=== PATIENT | male | born 1975 | race American Indian/Alaskan Native ===

== ENCOUNTER 2017-09-21 21:34 | Emergency (ER) | payer SELFPAY ==
[2017-09-21] MEDS ORDERED: DUONEB *Not for PRN Use IH ONE (22:34)
--- NOTE | 2017-09-22 01:21 | XRay Report ---
FINAL REPORT EXAM: XR CXR CLINICAL INDICATIONS: UPPER RESP DISTRESS FINDINGS: Frontal and lateral views of the chest were acquired and demonstrate that the heart is normal in size. The lungs appear clear. The pleura and mediastinum are within normal limits. IMPRESSION: NO ACTIVE DISEASE IN THE CHEST
--- NOTE | 2017-09-22 01:52 | Emergency Department Report ---
Upper Respiratory HPI - HPI Chief Complaint: Upper Respiratory Infection Stated Complaint: JERALD; ALLERGIES Time Seen by Provider: 09/22/17 01:00 URI Symptoms: Rhinorrhea: Yes, Sore Throat: No, Ear Pain: No, Cough: Yes, Shortness of Breath: No, Sick Contacts: No, Unable to Take Fluids: No, Urine Output Abnormal: No, Listless Behavior: No Other History: This is a 42-year-old male nontoxic, well nourished in appearance , no acute signs of distress presents to the ED with c/o of nonproductive cough and rhinorrhea with nasal congestion. Patient also stated has had slight wheezing which causes him to have difficulty breathing. Patient states she has history of allergies to pollen and stated this occurs yearly. Patient denies any fever, productive cough, numbness, tingling, headache, stiff neck, back pain , chest pain, shortness of breath, abdominal pain, numbness or tingling. Patient denies any recent travels, long car rides or recent hospital stays. Patient denies any calf pain or calf tenderness. Patient denies any allergies or PMH. - Home Meds and Allergies Home Medications: Previous Rx's Medication Instructions Recorded Last Taken Type ALBUTEROL Inhaler [ProAir HFA 2 puff IH QID PRN #1 inhalation 09/22/17 Unknown Rx Inhaler] Benzonatate [Tessalon Perle] 100 mg PO Q6H PRN #20 capsule 09/22/17 Unknown Rx Fluticasone [Flonase] 1 spray NS QDAY #1 bottle 09/22/17 Unknown Rx Loratadine [Claritin] 10 mg PO DAILY #30 tablet 09/22/17 Unknown Rx Prednisone [predniSONE 10 mg 10 mg PO .TAPER #1 tab.ds.pk 09/22/17 Unknown Rx (6-Day Pack, 21 Tabs)] Allergies/Adverse Reactions: Allergies Allergy/AdvReac Type Severity Reaction Status Date / Time No Known Allergies Allergy Verified 09/21/17 22:30 ED Review of Systems ROS: Stated complaint: JERALD; ALLERGIES Other details as noted in HPI Constitutional: denies: chills, fever Eyes: denies: eye pain, eye discharge, vision change ENT: denies: ear pain, throat pain Respiratory: cough, shortness of breath, wheezing Cardiovascular: denies: chest pain, palpitations Endocrine: no symptoms reported Gastrointestinal: denies: abdominal pain, nausea, diarrhea Genitourinary: denies: urgency, dysuria Musculoskeletal: denies: back pain, joint swelling, arthralgia Skin: denies: rash, lesions Neurological: denies: headache, weakness, paresthesias Psychiatric: denies: anxiety, depression Hematological/Lymphatic: denies: easy bleeding, easy bruising ED Past Medical Hx - Past Medical History Previous Medical History?: No - Surgical History Past Surgical History?: No - Social History Smoking Status: Never Smoker Substance Use Type: Alcohol - Medications Home Medications: Home Medications Medication Instructions Recorded Confirmed Last Taken Type ALBUTEROL Inhaler [ProAir HFA 2 puff IH QID PRN #1 inhalation 09/22/17 Unknown Rx Inhaler] Benzonatate [Tessalon Perle] 100 mg PO Q6H PRN #20 capsule 09/22/17 Unknown Rx Fluticasone [Flonase] 1 spray NS QDAY #1 bottle 09/22/17 Unknown Rx Loratadine [Claritin] 10 mg PO DAILY #30 tablet 09/22/17 Unknown Rx Prednisone [predniSONE 10 mg 10 mg PO .TAPER #1 tab.ds.pk 09/22/17 Unknown Rx (6-Day Pack, 21 Tabs)] ED Bronchiolitis Physical Exam - Exam General: Vital signs noted. No distress. Alert and acting appropriately. Neurologic: Alert and oriented, no deficits. Musculoskeletal: Unremarkable. ED Bronchiolitis Tests - Testing Testing: CXR: Normal/Negative Treatments - Treaments Treatment: Improved Albuterol ED Physical Exam - General Limitations: No Limitations General appearance: alert, in no apparent distress - Head Head exam: Present: atraumatic, normocephalic - Eye Eye exam: Present: normal appearance Pupils: Present: normal accommodation - ENT ENT exam: Present: normal exam, normal orophraynx, mucous membranes moist, TM's normal bilaterally, normal external ear exam - Neck Neck exam: Present: normal inspection - Respiratory Respiratory exam: Present: normal lung sounds bilaterally, wheezes (bilateral upper and lower lobes). Absent: respiratory distress, rales, rhonchi, stridor, chest wall tenderness, accessory muscle use, decreased breath sounds, prolonged expiratory - Cardiovascular Cardiovascular Exam: Present: regular rate, normal rhythm, irregular rhythm, normal heart sounds. Absent: bradycardia, tachycardia, systolic murmur, diastolic murmur, rubs, gallop - GI/Abdominal GI/Abdominal exam: Present: soft, normal bowel sounds. Absent: distended, tenderness, guarding, rebound, rigid, diminished bowel sounds - Rectal Rectal exam: Present: deferred - Extremities Exam Extremities exam: Present: normal inspection, full ROM, normal capillary refill - Back Exam Back exam: Present: normal inspection, full ROM - Neurological Exam Neurological exam: Present: alert, oriented X3, normal gait - Psychiatric Psychiatric exam: Present: normal affect, normal mood - Skin Skin exam: Present: warm, dry, intact, normal color. Absent: rash ED Course Vital Signs 09/21/17 22:30 Temperature 98.9 F Pulse Rate 77 Respiratory 16 Rate Blood Pressure 135/50 O2 Sat by Pulse 97 Oximetry - Consultations Consultation #1: 09/22/17 01:54 Patient is speaking in full sentences with no signs of distress noted. ED Medical Decision Making - Medical Decision Making This is a 42-year-old female that presents with bronchitis. Patient was examined by me and patient is stable. X-ray dictated by the radiologist within normal limits. PAtient received DuoNeb and Solu-Medrol in the ED which peaked his symptoms of wheezing has subsided. Patient also stated that his shortness of breath has also subsided. Wells criteria 0 point for DVT/PE. Patient is discharged with Claritin, prednisone, Tessalon Perles. Patient was referred to Follow-up with a primary care doctor in 3-5 days or if symptoms worsen and continue return to emergency room as soon as possible. At time of discharge, the patient does not seem toxic or ill in appearance. No acute signs of distress noted. Patient agrees to discharge treatment plan of care. No further questions noted by the patient. Critical care attestation.: If time is entered above; I have spent that time in minutes in the direct care of this critically ill patient, excluding procedure time. ED Disposition Clinical Impression: Bronchitis Disposition: DC-01 TO HOME OR SELFCARE Is pt being admited?: No Does the pt Need Aspirin: No Condition: Stable Instructions: Albuterol (By breathing), Prednisone (By mouth), Acute Bronchitis (ED) Additional Instructions: Follow-up with a primary care doctor in 3-5 days or if symptoms worsen and continue return to emergency room as soon as possible. Prescriptions: ALBUTEROL Inhaler [ProAir HFA Inhaler] 2 puff IH QID PRN #1 inhalation PRN Reason: Shortness Of Breath Benzonatate [Tessalon Perle] 100 mg PO Q6H PRN #20 capsule PRN Reason: Cough Fluticasone [Flonase] 1 spray NS QDAY #1 bottle Loratadine [Claritin] 10 mg PO DAILY #30 tablet Prednisone [predniSONE 10 mg (6-Day Pack, 21 Tabs)] 10 mg PO .TAPER #1 tab.ds.pk Referrals: MATT JC MD [Primary Care Provider] - 3-5 Days PRIMARY CARE, [Referring] - 3-5 Days [facility] [Outside] - 3-5 Days [facility] [Outside] - 3-5 Days Forms: Work/School Release Form(ED)
[2017-09-22 03:29] VITALS: BP 130/62
== END 2017-09-22 03:34 | disposition home or self-care (01) ==
LOC: ED 21:34
DX: J40 Bronchitis, not specified as acute or chronic (principal)
CPT/HCPCS: 71046; 96372; 99283; J2930

== ENCOUNTER 2020-05-20 18:45 | Emergency (ER) | payer SELFPAY ==
[2020-05-20 19:23] VITALS: BP 168/96
--- NOTE | 2020-05-20 19:28 | Event Note ---
ED Screening Note Date of service: 05/20/20 Time: 19:26 ED Screening Note: 45-year-old -[place] male presents to the emergency room for right knee injury and pain with swelling. This initial assessment/diagnostic orders/clinical plan/treatment(s) is/are subject to change based on patients health status, clinical progression and re- assessment by fellow clinical providers in the ED. Further treatment and workup at subsequent clinical providers discretion. Patient/guardian urged not to elope from the ED as their condition may be serious if not clinically assessed and managed. Initial orders include:
--- NOTE | 2020-05-20 20:05 | XRay Report ---
RIGHT KNEE 2 VIEWS INDICATION / CLINICAL INFORMATION: Knee injury pain and swelling COMPARISON: None available. FINDINGS: BONES / JOINT(S): No acute fracture or subluxation. No significant arthritis. SOFT TISSUES: No significant abnormality. ADDITIONAL FINDINGS: None. Signer Name: Josue Loo MD Signed: 05/20/2020 8:00 PM Workstation Name: [id number]
[2020-05-20] MEDS ORDERED: IBUPROFEN 600 MG TAB PO ONE (20:37)
[2020-05-20] MEDS ORDERED: ACETAMINOPHEN 500 MG TAB PO ONE (20:37)
--- NOTE | 2020-05-20 20:42 | Emergency Department Report ---
ED Lower Extremity HPI - General Chief Complaint: Extremity Injury, Lower Stated Complaint: RT KNEE INJURY/PAIN Source: patient Mode of arrival: Ambulatory Limitations: No Limitations - History of Present Illness Initial Comments: Patient is a 45-year-old -Spanish male with no past medical history presents to the ED with complaint of acute onset persistent right knee pain after twisting the right knee 24 hours ago. Patient states that the pain has been persistent and severe in the last 12 hours, and worse with ambulation or active range of motion of right leg. Patient denies fall, traumatic injury, headache, dizziness, syncope, numbness and tingling or weakness of lower extremities bilaterally, back pain, hip pain, chest pain or shortness of breath. MD Complaint: knee injury (right knee pain) -: Sudden, hour(s) (24) Injury: Knee: Right (pain) Type of Injury: eversion, hyperextension Place: home Severity: severe Severity scale (0 -10): 7 Improves With: nothing Worsens With: weight bearing, movement, palpation Context: other (Twisted right knee ) Associated Symptoms: snap/pop sensation, swelling, able to partially bear weight. denies: numbness, tingling, unable to bear weight, ambulatory - Related Data Previous Rx's Medication Instructions Recorded Last Taken Type Albuterol Mdi (or & Nicu Only) 2 puff IH QID PRN #1 inhalation 09/22/17 Unknown Rx [ProAir HFA Inhaler] Benzonatate [Tessalon Perle] 100 mg PO Q6H PRN #20 capsule 09/22/17 Unknown Rx Fluticasone [Flonase] 1 spray NS QDAY #1 bottle 09/22/17 Unknown Rx Loratadine (Nf) [Claritin] 10 mg PO DAILY #30 tablet 09/22/17 Unknown Rx Prednisone [predniSONE 10 mg 10 mg PO .TAPER #1 tab.ds.pk 09/22/17 Unknown Rx (6-Day Pack, 21 Tabs)] Cyclobenzaprine [Flexeril] 10 mg PO QHS PRN #10 tablet 05/20/20 Unknown Rx Ibuprofen [Motrin] 800 mg PO Q8HR PRN #30 tablet 05/20/20 Unknown Rx Allergies Allergy/AdvReac Type Severity Reaction Status Date / Time No Known Allergies Allergy Verified 09/21/17 22:30 ED Review of Systems ROS: Stated complaint: RT KNEE INJURY/PAIN Other details as noted in HPI Constitutional: denies: chills, fever Eyes: denies: eye pain, eye discharge, vision change ENT: denies: ear pain, throat pain Respiratory: denies: cough, shortness of breath, wheezing Cardiovascular: denies: chest pain, palpitations Endocrine: no symptoms reported Gastrointestinal: denies: abdominal pain, nausea, diarrhea Genitourinary: denies: urgency, dysuria Musculoskeletal: joint swelling (right knee mild swelling), arthralgia (right knee). denies: back pain Skin: denies: rash, lesions Neurological: denies: headache, weakness, paresthesias Psychiatric: denies: anxiety, depression Hematological/Lymphatic: denies: easy bleeding, easy bruising ED Past Medical Hx - Past Medical History Previous Medical History?: No - Social History Smoking Status: Never Smoker Substance Use Type: None - Medications Home Medications: Home Medications Medication Instructions Recorded Confirmed Last Taken Type Albuterol Mdi (or & Nicu Only) 2 puff IH QID PRN #1 inhalation 09/22/17 Unknown Rx [ProAir HFA Inhaler] Benzonatate [Tessalon Perle] 100 mg PO Q6H PRN #20 capsule 09/22/17 Unknown Rx Fluticasone [Flonase] 1 spray NS QDAY #1 bottle 09/22/17 Unknown Rx Loratadine (Nf) [Claritin] 10 mg PO DAILY #30 tablet 09/22/17 Unknown Rx Prednisone [predniSONE 10 mg 10 mg PO .TAPER #1 tab.ds.pk 09/22/17 Unknown Rx (6-Day Pack, 21 Tabs)] Cyclobenzaprine [Flexeril] 10 mg PO QHS PRN #10 tablet 05/20/20 Unknown Rx Ibuprofen [Motrin] 800 mg PO Q8HR PRN #30 tablet 05/20/20 Unknown Rx ED Physical Exam - General Limitations: No Limitations General appearance: alert, in no apparent distress - Head Head exam: Present: atraumatic, normocephalic, normal inspection - Eye Eye exam: Present: normal appearance, PERRL, EOMI Pupils: Present: normal accommodation - ENT ENT exam: Present: normal exam, normal orophraynx, mucous membranes moist, TM's normal bilaterally, normal external ear exam - Neck Neck exam: Present: normal inspection, full ROM - Respiratory Respiratory exam: Present: normal lung sounds bilaterally. Absent: respiratory distress, wheezes, rales, stridor, chest wall tenderness, accessory muscle use, decreased breath sounds, prolonged expiratory - Cardiovascular Cardiovascular Exam: Present: regular rate, normal rhythm, normal heart sounds. Absent: systolic murmur, diastolic murmur, rubs, gallop - GI/Abdominal GI/Abdominal exam: Present: soft, normal bowel sounds. Absent: tenderness, guarding, rebound, hyperactive bowel sounds, organomegaly - Extremities Exam Extremities exam: Present: normal inspection, full ROM, tenderness (Palpable right knee tenderness with mild swelling), normal capillary refill, joint swelling (Mild right knee swelling). Absent: calf tenderness - Back Exam Back exam: Present: normal inspection, full ROM. Absent: tenderness, CVA tenderness (R), CVA tenderness (L), muscle spasm, paraspinal tenderness - Neurological Exam Neurological exam: Present: alert, oriented X3, CN II-XII intact, normal gait, reflexes normal - Psychiatric Psychiatric exam: Present: normal affect, normal mood - Skin Skin exam: Present: warm, dry, intact, normal color. Absent: rash ED Course Vital Signs 05/20/20 19:21 Temperature 98.3 F Pulse Rate 83 Respiratory 18 Rate Blood Pressure 168/96 O2 Sat by Pulse 100 Oximetry ED Lower Extremity MDM - Radiology Data Radiology results: report reviewed, image reviewed Findings [facility] [address] [place] [address] XRay Report Signed Patient: ZHENG VEGA MR#: [id number] : 1975 Acct:[id number] Age/Sex: 45 / M ADM Date: 05/20/20 Loc: ED Attending Dr: Ordering Physician: SAMEER BOLANOS Date of Service: 05/20/20 Procedure(s): XR knee 1-2V RT Accession Number(s): [id number] cc: SAMEER BOLANOS Fluoro Time In Minutes: RIGHT KNEE 2 VIEWS INDICATION / CLINICAL INFORMATION: Knee injury pain and swelling COMPARISON: None available. FINDINGS: BONES / JOINT(S): No acute fracture or subluxation. No significant arthritis. SOFT TISSUES: No significant abnormality. ADDITIONAL FINDINGS: None. Signer Name: Josue Loo MD Signed: 05/20/2020 8:00 PM Workstation Name: [id number] Transcribed By: SS Dictated By: Josue Loo MD Electronically Authenticated By: Josue Loo MD Signed Date/Time: 05/20/201999 DD/ 99 TD/TT: - Medical Decision Making This is a 45-year-old -Spanish male with no past medical history presents to the ED with complaint of acute onset persistent right knee pain after twisting the right knee 24 hours ago. Patient states that the pain has been persistent and severe in the last 12 hours, and worse with ambulation or active range of motion of right leg. In the ED, patient is alert and oriented x3 and is not in distress. Patient was treated for pain in the ED and right knee x-ray shows no acute fractures or subluxations. Patient was treated for pain and the right knee was splinted with George wrap and the patient was discharged home on pain medications and advised to follow-up with his primary care physician in 5 to 7 days for reevaluation or return to the ED immediately if symptoms get worse. - Differential Diagnosis Knee sprain; muscle strain of right knee; knee contusion; knee fracture Critical care attestation.: If time is entered above; I have spent that time in minutes in the direct care of this critically ill patient, excluding procedure time. ED Disposition Clinical Impression: Sprain of right knee/leg Qualifiers: Encounter type: initial encounter Qualified Code(s): S83.91XA - Sprain of unspecified site of right knee, initial encounter Muscle strain of right knee Qualifiers: Encounter type: initial encounter Qualified Code(s): S86.911A - Strain of unspecified muscle(s) and tendon(s) at lower leg level, right leg, initial encounter Disposition: - TO HOME OR SELFCARE Is pt being admited?: No Does the pt Need Aspirin: No Condition: Stable Instructions: Muscle Strain, [id number], Knee Sprain, Adult, [id number] Additional Instructions: Right knee x-ray shows no acute fractures or subluxations. The injuries are due to sprain of right knee ligaments and tendons. Therefore take medications with food, drink plenty of fluids and follow-up with your primary care physician in 5 to 7 days for reevaluation or return to the ED immediately if symptoms get worse. Prescriptions: Cyclobenzaprine [Flexeril] 10 mg PO QHS PRN #10 tablet PRN Reason: Muscle Spasm Ibuprofen [Motrin] 800 mg PO Q8HR PRN #30 tablet PRN Reason: Pain , Severe (7-10) Referrals: [facility] [Outside] - 3-5 Days Time of Disposition: 20:41 Print Language: MALTESE
== END 2020-05-20 21:16 | disposition home or self-care (01) ==
LOC: ED 18:45
DX: S83.91XA Sprain of unspecified site of right knee, initial encounter (principal); S86.911A Strain of unspecified muscle(s) and tendon(s) at lower leg level, right leg, initial encounter; Z79.899 Other long term (current) drug therapy; X58.XXXA Exposure to other specified factors, initial encounter; Y93.89 Activity, other specified; Y92.89 Other specified places as the place of occurrence of the external cause; Y99.8 Other external cause status